=== PATIENT | male | born 1990 | race Caucasian/White ===

== ENCOUNTER 2017-03-20 01:01 | Emergency (ER) | payer SELFPAY ==
[~2017-03-20] VITALS: Ht 185.4 cm; Wt 127.0 kg
[2017-03-20 02:00] VITALS: BP_SYST 157
[2017-03-20 02:10] VITALS: BP_SYST 157
== END 2017-03-20 02:10 | disposition left against medical advice (07) ==
LOC: SED 01:01
DX: M79.89 Other specified soft tissue disorders (principal); Z53.21 Procedure and treatment not carried out due to patient leaving prior to being seen by health care provider

== ENCOUNTER 2022-12-25 10:19 | Emergency (ER) | payer OTHER ==
[~2022-12-25] VITALS: Ht 188 cm; Wt 163.3 kg
[2022-12-25 10:29] VITALS: BP_SYST 181
[2022-12-25] MEDS ORDERED: PSEU120T57 PO (11:52)
[2022-12-25] MEDS ORDERED: GUAI-723 PO (11:52)
[2022-12-25] MEDS ORDERED: ALBMDI INH (11:52)
[2022-12-25] MEDS ORDERED: BENZ100C92 PO (11:52)
[2022-12-25] MEDS ORDERED: PRED20TA PO (11:52)
== END 2022-12-25 12:00 | disposition home or self-care (01) ==
LOC: SED 10:19
DX: J10.1 Influenza due to other identified influenza virus with other respiratory manifestations (principal); J20.9 Acute bronchitis, unspecified; R05.9 Cough, unspecified; H92.02 Otalgia, left ear; R11.10 Vomiting, unspecified; Z79.899 Other long term (current) drug therapy; Z20.822 Contact with and (suspected) exposure to COVID-19
CPT/HCPCS: 36415; 71046-TC; 99284